=== PATIENT | male | born 1990 | race American Indian/Alaskan Native ===

== ENCOUNTER 2020-08-29 22:49 | Emergency (ER) | payer BC, OTHER ==
[2020-08-29 23:23] VITALS: BP 135/87; PULSE 102
--- NOTE | 2020-08-30 00:28 | EDM.PDOC ---
ED HPI GENERAL MEDICAL PROBLEM - General Chief Complaint: Lower Extremity Injury/Pain Stated Complaint: ANKLE INJURY Time Seen by Provider: 08/30/20 00:17 - History of Present Illness INITIAL COMMENTS - FREE TEXT/NARRATIVE: 30-year-old male presents the emergency room with a right ankle injury. Approximately 7 PM this evening the patient was playing basketball and landed funny on his ankle it rolled then he heard a pop. The patient has difficulty ambulating on this and it is quite uncomfortable. Patient denies any other injury associated with this most unfortunate event. right ankle Pain Score (Numeric/FACES): 5 - Related Data Allergies Allergy/AdvReac Type Severity Reaction Status Date / Time No Known Allergies Allergy Verified 08/29/20 23:23 Home Meds: Home Meds Ondansetron [Zofran ODT] 4 mg PO Q6H #5 tab.dis 08/07/15 [Rx] oxyCODONE HCl/Acetaminophen [Percocet 5-325 mg Tablet] 1 - 2 each PO Q4H PRN #12 tablet 08/07/15 [Rx] Past Medical History - Past Health History Medical/Surgical History: Denies Medical/Surgical History Social & Family History - Tobacco Use Tobacco Use Status *Q: Current Every Day Tobacco User Years of Tobacco use: 4 Packs/Tins Daily: 0.5 - Recreational Drug Use Recreational Drug Use: No - Living Situation & Occupation Living situation: Reports: Occupation: Employed Review of Systems - Review of Systems Review Of Systems: See Below Constitutional: Reports: No Symptoms Respiratory: Reports: No Symptoms Cardiovascular: Reports: No Symptoms GI/Abdominal: Reports: No Symptoms Musculoskeletal: Reports: Joint Pain (Involving the right ankle), Joint Swelling (Involving the right ankle). Denies: Arm Pain, Back Pain Skin: Reports: No Symptoms Neurological: Reports: No Symptoms ED EXAM, GENERAL - Physical Exam Exam: See Below Exam Limited By: No Limitations General Appearance: Alert, No Apparent Distress Head: Atraumatic, Normocephalic Neck: Normal Inspection, Supple, Non-Tender, Full Range of Motion Respiratory/Chest: No Respiratory Distress, Lungs Clear, Normal Breath Sounds Cardiovascular: Regular Rate, Rhythm, No Edema, No Murmur Extremities: Leg Pain (Closer examination of the lateral malleolus shows point tenderness over the anterior talofibular ligament and calcaneofibular ligament with significant swelling involving this area.), Other (Examination of the right lower extremities shows no tenderness with palpation of the calf from the level of the knee on down until you get to the lateral malleolus. No medial malleolus tenderness. Neurovascular status of the foot is intact) Course - Vital Signs Last Recorded V/S: Last Vital Signs Temp 36.1 C 08/29/20 23:20 Pulse 102 H 08/29/20 23:20 Resp 18 08/29/20 23:20 BP 135/87 08/29/20 23:20 Pulse Ox 97 08/29/20 23:20 - Orders/Labs/Meds Orders: Active Orders 24 hr Category Date Time Status Ankle Min 3V Rt [CR] Stat Exams 08/29/20 23:35 Taken Durable Medical Equipment for Discharge [DME for Oth 08/30/20 00:40 Ordered Discharge] [COMM] Stat Durable Medical Equipment for Discharge [DME for Oth 08/30/20 00:41 Ordered Discharge] [COMM] Stat - Re-Assessments/Exams Free Text/Narrative Re-Assessment/Exam: 08/30/20 01:02 X-ray examination of the ankle clearly visualize the fifth metatarsal which appears intact ankle views showed no displacement or dislocation there is a questionable nondisplaced fracture involving the distal fibula this is very subtle the patient will be placed in a walking boot and will use crutches we will have him follow-up with orthopedics at the end of this next week. Departure - Departure Time of Disposition: 01:05 Disposition: Home, Self-Care 01 Clinical Impression: Sprain of lateral ligament of ankle joint - Discharge Information Instructions: Cast or Splint Care, Adult, [id number], Crutch Use, Adult, [id number] Referrals: PCP,None [Primary Care Provider] - Lawrenec Disla MD [Physician] - Forms: ED Department Discharge Additional Instructions: Return to the emergency room with any questions problems or worsening symptoms. Use the walking boot and crutches at all times. Use ibuprofen or Tylenol as needed for pain. For the more severe pain you have been given some hydrocodone from the machine out in the waiting room. Take 1 or 2 every 6 hours only if absolutely needed. Allow 12 hours after using this medication before driving or returning to work You should not drive while needing to wear your boot. Follow-up with Dr. Nighat [id number], here in [place]. [facility] in [place] [phone] at the end of this next week Sepsis Event Note (ED) - Evaluation Sepsis Screening Result: No Definite Risk - Focused Exam Vital Signs: Vital Signs Temp Pulse Resp BP Pulse Ox 08/29/20 23:20 36.1 C 102 H 18 135/87 97 - My Orders Last 24 Hours: My Active Orders 08/29/20 23:35 Ankle Min 3V Rt [CR] Stat 08/30/20 00:40 Durable Medical Equipment for Discharge [DME for Discharge] [COMM] Stat 08/30/20 00:41 Durable Medical Equipment for Discharge [DME for Discharge] [COMM] Stat - Assessment/Plan Last 24 Hours: My Active Orders 08/29/20 23:35 Ankle Min 3V Rt [CR] Stat 08/30/20 00:40 Durable Medical Equipment for Discharge [DME for Discharge] [COMM] Stat 08/30/20 00:41 Durable Medical Equipment for Discharge [DME for Discharge] [COMM] Stat
--- NOTE | 2020-08-30 06:53 | CR ---
Right ankle: 3 views of the right ankle were obtained. Comparison: No previous ankle study. Ankle mortise is symmetric. Small bony exostosis is noted off the dorsal talus which is an old variant. No acute fracture, dislocation or other bony abnormality is appreciated. Impression: 1. Nothing acute is identified on right ankle exam. Diagnostic code #1
== END 2020-08-30 01:28 | disposition home or self-care (01) ==
LOC: JD.ED 22:49
DX: S93.491A Sprain of other ligament of right ankle, initial encounter (principal); Z72.0 Tobacco use; W19.XXXA Unspecified fall, initial encounter; Y93.67 Activity, basketball
CPT/HCPCS: 73610-26-RT; 73610-RT; 99282; 99283

== ENCOUNTER 2021-03-23 12:54 | Emergency (ER) | payer OTHER ==
[2021-03-23 14:07] VITALS: BP 129/82; PULSE 56
--- NOTE | 2021-03-23 14:21 | EDM.PDOC ---
ED HPI GENERAL MEDICAL PROBLEM - General Chief Complaint: Upper Extremity Injury/Pain Stated Complaint: WRIST INJURY Time Seen by Provider: 03/23/21 13:58 Source of Information: Reports: Patient, RN Notes Reviewed History Limitations: Reports: No Limitations - History of Present Illness INITIAL COMMENTS - FREE TEXT/NARRATIVE: Patient is a 30-year-old male who presents to the ER for a left wrist injury. States that he slipped on the ice Tuesday night and caught himself with outstretched left wrist. States he had pain in his left wrist/proximal hand since then. Has been icing this without much relief. States that it is very difficult to move his wrist and any range of motion at all due to the pain. Denying any numbness/tingling distal to the injury. Patient denies any other sick-like symptoms, fever/chills, cough/shortness of breath, nausea/vomiting/diarrhea. 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 OPERATOR: ice Left Wrist Pain Score (Numeric/FACES): 8 - Related Data Allergies Allergy/AdvReac Type Severity Reaction Status Date / Time No Known Allergies Allergy Verified 08/29/20 23:23 Home Meds: Home Meds Hydrocodone/Acetaminophen [HYDROcodone-Acetaminophen 5-325 MG] 1 each PO Q6H PRN #20 tablet 03/23/21 [Rx] Past Medical History - Past Health History Medical/Surgical History: Denies Medical/Surgical History - Infectious Disease History Infectious Disease History: Reports: None Social & Family History - Tobacco Use Tobacco Use Status *Q: Never Tobacco User - Caffeine Use Caffeine Use: Reports: Energy Drinks, Soda, Tea - Recreational Drug Use Recreational Drug Use: No - Living Situation & Occupation Living situation: Reports: Occupation: Employed Review of Systems - Review of Systems Review Of Systems: Comprehensive ROS is negative, except as noted in HPI. 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) Neurological: Alert, Oriented, Normal Cognition, No Motor/Sensory Deficits Psychiatric: Normal Affect, Normal Mood Skin Exam: Warm, Dry, Intact, Normal Color, No Rash ED TRAUMA EXTREMITY PROCEDURES - Splinting Left Upper Extremity Splint Site: Left wrist/hand Pre-Procedure NV Status: Normal Post-Procedure NV Status: Normal Splint Material: Other (pre-fabricated thumb spica from Home medical (DME) closet) Splint Design: Thumb Spica Applied & Form Fitted By: Nurse Provider Post-Splint Application NV Check: NV Status Normal, Good Position Complications: No Course - Vital Signs Last Recorded V/S: Last Vital Signs Temp 96.8 F L 03/23/21 14:06 Pulse 56 L 03/23/21 14:06 Resp 20 03/23/21 14:06 BP 129/82 03/23/21 14:06 Pulse Ox 97 03/23/21 14:06 - Orders/Labs/Meds Orders: Active Orders 24 hr Category Date Time Status Communication Order [RC] ASDIRECTED Care 03/23/21 13:58 Active Communication Order [RC] ASDIRECTED Care 03/23/21 13:58 Active Communication Order [RC] ROUTINE Care 03/23/21 13:58 Active DME for Discharge [COMM] Routine Oth 03/23/21 14:22 Ordered - Re-Assessments/Exams Free Text/Narrative Re-Assessment/Exam: 03/23/21 14:18 Patient presents to the ER for evaluation of his left wrist injury, x-rays done at the time of triage demonstrate a possible navicular fracture. Official radiology read is still pending. Patient will likely be given a thumb spica splint from the DME closet for stabilization of the injury and to prevent further injury to the area. 03/23/21 14:55 Official radiology read did demonstrate a fracture of the navicular bone. Patient will be placed into a thumb spica splint from the home medical closet for stabilization and to prevent further injury to the area. He will need to follow-up with hand specialty in [place], patient verbalized understanding of this. Departure - Departure Time of Disposition: 14:43 Disposition: Home, Self-Care 01 Condition: Good Clinical Impression: Fracture closed, carpal bone Qualifiers: Encounter type: initial encounter Carpal bone: scaphoid Scaphoid bone location: unspecified portion of scaphoid Fracture alignment: nondisplaced Laterality: left Qualified Code(s): S62.002A - Unspecified fracture of navicular [scaphoid] bone of left wrist, initial encounter for closed fracture - Discharge Information *PRESCRIPTION DRUG MONITORING PROGRAM REVIEWED*: Yes *COPY OF PRESCRIPTION DRUG MONITORING REPORT IN PATIENT DAVIDE: No Prescriptions: Hydrocodone/Acetaminophen [HYDROcodone-Acetaminophen 5-325 MG] 1 each PO Q6H PRN #20 tablet PRN Reason: Pain Instructions: Wrist Fracture Treated With Immobilization, [id number], Pain Medicine Instructions, [id number] Forms: ED Department Discharge Additional Instructions: You have been evaluated in the ED for your left wrist/hand injury. Your x-ray demonstrated a small fracture within the distal corner of the navicular bone, this is close to anatomic alignment. You have been provided with a brace/splint to prevent further injury and/or stabilize the injury you received today. Please use ice as tolerated to the affected area. You may elevate the affected area to provide further relief from swelling. You may take Tylenol 500 mg or ibuprofen 600mg q6 hrs for pain relief. Please do so until you have a tolerable level of pain with activity. Do not exceed 4000mg Tylenol, Do not exceed 3200mg ibuprofen in a 24 hour time period. You were given a prescription for a strong pain medication, hydrocodone/acetaminophen 5/325, please take 1 tab every 6 hours as needed for pain not relieved by Tylenol or ibuprofen alone. Please note this does contain Tylenol in it, so do not take more than 4000 mg in a 24-hour time span. These medications can be addictive, so please take as few as possible to achieve adequate pain control. These meds can also be quite constipating, recommend that you increase your oral fluid intake and take a stool softener like MiraLAX while taking these medications. This medication was electronically sent to the [facility] located on [address]. Please call Ortho for follow-up and further evaluation. You will need to have your fractured followed by someone who specializes in hands, the closest specialist we have are at [facility] in [place]. Please call [phone] to obtain an appointment with any provider that specializes in hands for ongoing management of your navicular fracture. Please return to ED if your symptoms should change or worsen. Sepsis Event Note (ED) - Focused Exam Vital Signs: Vital Signs Temp Pulse Resp BP Pulse Ox 03/23/21 14:06 96.8 F L 56 L 20 129/82 97 - My Orders Last 24 Hours: My Active Orders 03/23/21 13:58 Communication Order [RC] ASDIRECTED Communication Order [RC] ASDIRECTED Communication Order [RC] ROUTINE 03/23/21 14:22 DME for Discharge [COMM] Routine - Assessment/Plan Last 24 Hours: My Active Orders 03/23/21 13:58 Communication Order [RC] ASDIRECTED Communication Order [RC] ASDIRECTED Communication Order [RC] ROUTINE 03/23/21 14:22 DME for Discharge [COMM] Routine
--- NOTE | 2021-03-23 14:41 | CR ---
Left wrist: 4 views of the left wrist were obtained. Comparison: No prior wrist study is available. Fracture is seen within the corner of the distal navicular bone. Alignment is close to anatomic. Joint spaces are preserved. No additional fracture or other bony abnormality is appreciated. Impression: 1. Small fracture within the distal corner of the navicular bone which remains close to anatomic alignment. 2. No additional bony abnormality is seen. Diagnostic code #3
== END 2021-03-23 15:10 | disposition home or self-care (01) ==
LOC: JD.ED 12:54
DX: S62.002A Unspecified fracture of navicular [scaphoid] bone of left wrist, initial encounter for closed fracture (principal); W00.0XXA Fall on same level due to ice and snow, initial encounter
CPT/HCPCS: 73110-26-LT; 73110-LT; 99283

== ENCOUNTER 2022-08-02 21:49 | Emergency (ER) | payer SELFPAY ==
[2022-08-02 21:59] VITALS: BP 112/76
[2022-08-02] MEDS ORDERED: cefTRIAXone 1 GM Vial IM ONE (23:24)
[2022-08-02] MEDS ORDERED: Lidocaine 1% 50 ML MDV INJECT ONE (23:48)
[2022-08-02] MEDS ORDERED: Lidocaine 1% 10 ML MDV ONE (23:51)
[2022-08-02] MEDS ORDERED: Lidocaine 1% 10 ML MDV INJECT ONE (23:52)
[2022-08-03 00:19] VITALS: PULSE 77
== END 2022-08-03 00:19 | disposition home or self-care (01) ==
LOC: JD.ED 21:49
DX: J02.0 Streptococcal pharyngitis (principal); F17.210 Nicotine dependence, cigarettes, uncomplicated
CPT/HCPCS: 87651; 96372; 96374; 99283; J0696; J3490